=== PATIENT | male | born 1950 | race Asian ===

== ENCOUNTER 2022-05-09 07:36 | Day surgery (SDC) | payer MEDICAID ==
[2022-05-08 13:50] LABS: COVID AG,FIA SOURCE NASOPHARYNGEAL
[~2022-05-09] VITALS: Ht 162.6 cm; Wt 75.9 kg
[~2022-05-09 07:36] MED LIST: ASPI-1444 PO; BUME2TAB5 PO; CARV3.1231 PO; FAMO40TA7 PO; HYDR25TA84 PO; INSLAN SQ; ISOS30TA92 PO; NIFE90TA91 PO; NPH,100V SQ; OMEP20CA13 PO; ROSU10TA72 PO; SODIUM CHLORIDE 0.9% 1,000 ML ONE; TERA1CAP4 PO
[2022-05-09] MEDS ORDERED: SODIUM CHLORIDE 0.9% 1,000 ML IV ONE (08:00)
[2022-05-09] MEDS ORDERED: FentaNYL CITRATE PF 100 MCG/2 ML VIAL ONE (08:27)
[2022-05-09] MEDS ORDERED: MIDAZOLAM HCL 2 MG/2 ML VIAL ONE (08:27)
[2022-05-09] MEDS ORDERED: HYDR100T28 PO (08:50)
[2022-05-09] MEDS ORDERED: CARV6.2534 PO (08:50)
[2022-05-09 09:12] LABS: GLUCOMETER DEV NAME(LOC) SDS.; GLUCOSE,POINT OF CARE 128 MG/DL (70-110)
== END 2022-05-09 12:00 | disposition home or self-care (01) ==
LOC: SURGERY 07:36
PROVIDERS: ATTEND Student in an Organized Health Care Education/Training Program
DX: K31.89 Other diseases of stomach and duodenum (principal); K29.70 Gastritis, unspecified, without bleeding; E11.22 Type 2 diabetes mellitus with diabetic chronic kidney disease; I25.10 Atherosclerotic heart disease of native coronary artery without angina pectoris; I10 Essential (primary) hypertension; N18.30 Chronic kidney disease, stage 3 unspecified; Z79.899 Other long term (current) drug therapy; Z20.822 Contact with and (suspected) exposure to COVID-19; Z98.890 Other specified postprocedural states; M10.9 Gout, unspecified; Z87.891 Personal history of nicotine dependence; Z95.0 Presence of cardiac pacemaker; Z79.82 Long term (current) use of aspirin
CPT/HCPCS: 87426; 43239; 82962; 93005; C9803; C1769; J3010; J2250; J7030